=== PATIENT | male | born 1980 | race Hispanic/Latino ===

== ENCOUNTER 2023-04-09 20:10 | Emergency (ER) | payer SELFPAY ==
[~2023-04-09 20:10] MED LIST: Iopamidol 300 61% 100 ML VIAL FS ONE
[2023-04-09 22:03] LABS: ALT (SGPT) 71 U/L (8-55); AST (SGOT) 71 U/L (5-34); Albumin 4.1 g/dL (3.5-5.0); Alkaline Phosphatase 106 U/L (40-110); Anion Gap 14 mmol/L (10-20); BUN (Urea Nitrogen) 13 mg/dL (8.9-20.6); Bilirubin, Total 0.4 mg/dL (0.2-1.2); Calc. Creatinine Clearance 0 mL/min (70-130); Calcium 8.8 mg/dL (7.8-10.44); Carbon Dioxide 23 mmol/L (22-29); Chloride 105 mmol/L (98-107); Estimated GFR 115; Globulin 3.1 g/dL (2.4-3.5); Glucose 97 mg/dL (70-105); Lipase 28 U/L (8-78); Potassium 3.8 mmol/L (3.5-5.1); Protein, Total 7.2 g/dL (6.0-8.3); Sodium 138 mmol/L (136-145)
[2023-04-09] MEDS ORDERED: Mag-Al Plus 1200 MG/1200 MG/120 MG/30 ML UDCUP ONE (22:09)
[2023-04-09 22:12] LABS: #Basophils 0.1 10x3/uL (0.0-0.2); #Eosinphils 0.2 10x3/uL (0.0-0.5); #Monocytes 0.4 10x3/uL (0.0-1.1); #Neutrophils 3.8 10x3/uL (1.5-8.4); %Basophils 0.8 % (0.0-2.0); %Eosinophils 3.7 % (0.0-6.0); %Lymphocytes 24.7 % (18.0-47.0); %Monocytes 7.2 % (0.0-10.0); %Neutrophils 63.3 % (40.0-75.0); Hematocrit 30.4 % (38.8-50.0); Hemoglobin 8.4 g/dL (13.5-17.5); Mean Corpuscular HGB CONC 27.6 g/dL (32.0-36.0); Mean Corpuscular Hemoglobin 17.8 pg (27.0-33.0); Mean Corpuscular Volume 64.4 fl (81.2-95.1); Mean Platelet Volume 9.8 fl (7.4-10.4); Platelet Count 305 10x3/uL (150-450); RBC Distribution Width 21.4 % (11.5-14.5); Red Blood Cell (RBC) Count 4.72 10x6/uL (4.32-5.72)
[2023-04-09] MEDS ORDERED: Pantoprazole 40 MG VIAL ONE (22:53)
[2023-04-09 23:38] LABS: Platelet Adequacy Comment Appears Adequate
[2023-04-09 23:41] LABS: Hypochromia MODERATE=16-30 cells (100X) (0-5/hpf)
[2023-04-09 23:42] LABS: Microcytosis SLIGHT = 6-15 cells (100X) (0-5/hpf)
== END 2023-04-10 00:56 | disposition home or self-care (01) ==
LOC: CSHERS 20:10
DX: K29.21 Alcoholic gastritis with bleeding (principal); K29.70 Gastritis, unspecified, without bleeding; K62.5 Hemorrhage of anus and rectum
CPT/HCPCS: 71045; 74177; 76705; 80053; 83690; 84484; 85025; 85060; 93005; 96374; C9113; Q9967

== ENCOUNTER 2023-09-19 21:30 | Emergency (ER) | payer SELFPAY ==
[2023-09-19] MEDS ORDERED: Dexamethasone 20 MG/5 ML VIAL ONE (22:39)
== END 2023-09-19 22:38 | disposition home or self-care (01) ==
LOC: CSHERS 21:30
DX: L25.9 Unspecified contact dermatitis, unspecified cause (principal)
CPT/HCPCS: 96372; 99283; J1100